=== PATIENT | female | born 1985 | race American Indian/Alaskan Native ===

== ENCOUNTER 2019-10-21 05:53 | Emergency (ER) | payer SELFPAY ==
[2019-10-21 07:10] LABS: Bilirubin,Urine NEG (Negative); Blood,Urine LG (Negative); Color,Urine Straw (Yellow); Protein,Urine <15 mg/dL mg/dL (Negative); RBC,Urine > 182.0 /HPF (0.0-6.0); Urobilinogen,Urine < 2.0 mg/dL (<2.0)
[2019-10-21] MEDS ORDERED: ACETAMINOPHEN 325 MG TAB PO ONE (07:55)
--- NOTE | 2019-10-21 08:05 | Emergency Department Report ---
ED HPI - General Chief complaint: Vaginal Bleeding Stated complaint: POSS MISCARRIAGE Time Seen by Provider: 10/21/19 07:49 Source: patient Mode of arrival: Ambulatory Limitations: No Limitations, Language Barrier - History of Present Illness Initial comments: 34 yo female [id number], states she's about 11 weeks . Started spotting on Thursday, this am woke up with heavy vaginal bleeding with clots and abdominal cramping. Seen by her OB 1 week had US. She reports IUP. Complaint: abdominal pain, vaginal bleeding -: Sudden, This morning Location: abdomen Severity scale (0 -10): 4 Quality: cramping Consistency: intermittent Improves with: none Worsens with: none Associated symptoms: vaginal bleeding Vaginal bleeding: heavy, clots Number of weeks : 11 OB History - Current : no complications Pre-stacey care: followed by OB - Related Data : 5 Para: 2 Ab: 1 (miscarriage 1) Allergies Allergy/AdvReac Type Severity Reaction Status Date / Time No Known Allergies Allergy Unverified 10/21/19 06:02 ED Review of Systems ROS: Stated complaint: POSS MISCARRIAGE Other details as noted in HPI Comment: All other systems reviewed and negative Gastrointestinal: abdominal pain Genitourinary: other (Vaginal bleeding) ED Past Medical Hx - Past Medical History Previous Medical History?: No - Surgical History Past Surgical History?: Yes Additional Surgical History: c-Sec X 2 - Social History Smoking Status: Former Smoker Substance Use Type: None ED Physical Exam - General Limitations: No Limitations, Language Barrier General appearance: alert, in no apparent distress - Head Head exam: Present: atraumatic - Eye Eye exam: Present: normal appearance - ENT ENT exam: Present: mucous membranes moist - Respiratory Respiratory exam: Present: normal lung sounds bilaterally. Absent: respiratory distress - Cardiovascular Cardiovascular Exam: Present: regular rate - GI/Abdominal GI/Abdominal exam: Present: soft. Absent: distended, tenderness - Rectal Rectal exam: Absent: deferred - External exam: Present: normal external exam Speculum exam: Present: vaginal bleeding, tissue - Extremities Exam Extremities exam: Present: normal inspection - Back Exam Back exam: Present: normal inspection - Neurological Exam Neurological exam: Present: alert, oriented X3 - Psychiatric Psychiatric exam: Present: normal affect - Skin Skin exam: Present: warm, dry, intact ED Course Vital Signs 10/21/19 10/21/19 05:56 08:54 Temperature 98.1 F 98.6 F Pulse Rate 89 87 Respiratory 14 18 Rate Blood Pressure 102/64 119/70 O2 Sat by Pulse 100 100 Oximetry - Reevaluation(s) Reevaluation #1: 10/21/19 09:32 vaginal exam done active bleeding. What appears to be tissue removed and sent to lab for evaluation . ED Medical Decision Making - Lab Data Result diagrams: 10/21/19 08:18 - Radiology Data Radiology results: report reviewed US IMPRESSION: 1. A cystic structure is seen in the endometrial cavity of the lower uterine segment. No identifiable yolk sac or pole identified within. This may represent a passing gestational sac, recommend correlation with serial hCG and follow-up ultrasound as needed. 2. Right corpus luteum. - Medical Decision Making Blood work and us done. Pt refused to stay states she knows she having a miscarriage and will follow up with her doctor she signed out AMA with plans to see her OBgyn tomorrow Critical care attestation.: If time is entered above; I have spent that time in minutes in the direct care of this critically ill patient, excluding procedure time. ED Disposition Clinical Impression: Threatened in early Disposition: DC-07 LEFT AGAINST MED ADVICE Is pt being admited?: No Does the pt Need Aspirin: No Condition: Stable Referrals: PRIMARY CARE, [Primary Care Provider] - 3-5 Days Forms: AMA Form
[2019-10-21 08:27] LABS: Basophils % (Auto) 0.2 % (0.0-1.8); Eosinophils % (Auto) 0.1 % (0.0-4.3); Hematocrit 35.6 % (30.3-42.9); Hemoglobin 11.6 gm/dl (10.1-14.3); Lymphocytes # (Auto) 1.5 K/mm3 (1.2-5.4); Lymphocytes % (Auto) 8.5 % (13.4-35.0); Mean Corpuscular HGB Conc 33 % (30-34); Mean Corpuscular Volume 92 fl (79-97); Monocytes # (Auto) 0.5 K/mm3 (0.0-0.8); Monocytes % (Auto) 3.1 % (0.0-7.3); Platelet Count 293 K/mm3 (140-440); Red Blood Count 3.86 M/mm3 (3.65-5.03); Red Cell Distribution Width 13.5 % (13.2-15.2)
[2019-10-21 08:55] VITALS: BP 119/70
--- NOTE | 2019-10-21 09:44 | Ultrasound Report ---
ULTRASOUND OBSTETRIC INDICATION / CLINICAL INFORMATION: VAGINAL BLEEDING. Clinical Gestational Age (GA): Unknown TECHNIQUE: Transabdominal. COMPARISON: None available. FINDINGS: UTERUS: The uterus measures 13.5 x 5.6 x 7 cm. The endometrium is relatively thin, measuring up to ap proximately 4 mm. There is evidence of a probable prior scar in the anterior lower uterine segment. There is a cystic structure within the endometrial cavity in the lower uterine segment measu ring up to 3.7 x 0.8 cm. No identifiable yolk sac or pole is identified within the cystic struc ture. ADNEXA: No significant abnormality. A right corpus luteum is noted. FREE FLUID: None. ADDITIONAL FINDINGS: None. IMPRESSION: 1. A cystic structure is seen in the endometrial cavity of the lower uterine segment. No identifiable yolk sac or pole identified within. This may represent a passing gestational sac, recommend co rrelation with serial hCG and follow-up ultrasound as needed. 2. Right corpus luteum. Signer Name: Jaycee Rhoades MD Signed: 10/21/2019 9:40 AM Workstation Name: [id number]
== END 2019-10-21 10:06 | disposition left against medical advice (07) ==
LOC: ED 05:53
DX: O20.0 Threatened abortion (principal); Z3A.11 11 weeks gestation of pregnancy
CPT/HCPCS: 36415; 76801; 81001; 84702; 84703; 85025; 86900; 86901; 99284